=== PATIENT | male | born 2000 | race Caucasian/White ===

== ENCOUNTER 2018-02-03 12:13 | Emergency (ER) | payer OTHER ==
[2018-02-03 12:21] VITALS: BP 133/77
--- NOTE | 2018-02-03 12:35 | ED Physician Documentation ---
PD HPI LOWER EXT INJURY - Stated complaint Stated Complaint: L HIP PX - Chief complaint Chief Complaint: Ext Problem - History obtained from History obtained from: Patient PD PAST MEDICAL HISTORY - Past Medical History Past Medical History: Yes - Past Surgical History Past Surgical History: No - Present Medications Home Medications: Ambulatory Orders Medication Instructions Recorded Confirmed No Known Home Medications [No 02/03/18 02/03/18 Known Home Medications] - Allergies Allergies/Adverse Reactions: Allergies Allergy/AdvReac Type Severity Reaction Status Date / Time No Known Drug Allergies Allergy Verified 02/03/18 12:21 - Social History Does the pt smoke?: No Smoking Status: Never smoker Does the pt drink ETOH?: No Does the pt have substance abuse?: No - Immunizations Immunizations are current?: Yes Results - Vitals Vitals: Vital Signs - 24 hr 02/03/18 12:16 Temperature 36.5 C Heart Rate 69 Respiratory 16 Rate Blood Pressure 133/77 H O2 Saturation 100 Oxygen O2 Source Room air
[2018-02-03] MEDS ORDERED: KETOROLAC 60 MG/2 ML VIAL IVP STA (12:52)
[2018-02-03] MEDS ORDERED: ONDANSETRON 4 MG/2 ML VIAL IVP STA (12:52)
--- NOTE | 2018-02-03 12:54 | ED Physician Documentation ---
PD HPI ABD PAIN - Stated complaint Stated Complaint: L HIP PX - Chief complaint Chief Complaint: Ext Problem - History obtained from History obtained from: Patient - History of Present Illness Timing - onset: Today Timing - details: Abrupt onset (onset this morning when awakening), Still present Quality: Aching, Stabbing, Pain Location: LLQ (he initially was thinking hip pain but he points to lower abd/ side.) Radiation: Left flank Improved by: No: Laying still, Position Worsened by: Position (seems worse if he is on his side). No: Breathing, Palpation Associated symptoms: Nausea (at onset of the pain). No: Vomiting, Diarrhea Similar symptoms before: Has not had sx before Recently seen: Not recently seen Review of Systems Constitutional: denies: Fever, Chills Nose: denies: Rhinorrhea / runny nose, Congestion Throat: denies: Sore throat Respiratory: denies: Cough GI: reports: Abdominal Pain, Nausea, Vomiting. denies: Constipation, Diarrhea : denies: Dysuria, Frequency, Hematuria, Discharge Skin: denies: Rash, Lesions Neurologic: denies: Near syncope, Altered mental status PD PAST MEDICAL HISTORY - Past Medical History Past Medical History: Yes - Past Surgical History Past Surgical History: No - Present Medications Home Medications: Ambulatory Orders Medication Instructions Recorded Confirmed Dexamethasone [Decadron] 4 mg PO DAILY #5 tablet 02/03/18 HYDROcod/ACETAM 5/325 [[place] 5/325] 1 tab PO Q6H PRN #15 tablet 02/03/18 Naproxen [Naprosyn] 500 mg PO BID #20 tablet 02/03/18 Ondansetron Odt [Zofran] 4 mg TL Q6H PRN #15 tablet 02/03/18 - Allergies Allergies/Adverse Reactions: Allergies Allergy/AdvReac Type Severity Reaction Status Date / Time No Known Drug Allergies Allergy Verified 02/03/18 12:21 - Social History Does the pt smoke?: No Smoking Status: Never smoker Does the pt drink ETOH?: No Does the pt have substance abuse?: No - Immunizations Immunizations are current?: Yes PD ED PE NORMAL - Vitals Vital signs reviewed: Yes - General General: Alert and oriented X 3, Well developed/nourished, Other (appears in pain) - HEENT HEENT: Pharynx benign - Neck Neck: Supple, no meningeal sign, No adenopathy - Cardiac Cardiac: RRR, No murmur - Respiratory Respiratory: Clear bilaterally - Abdomen Abdomen: Normal bowel sounds, Soft, Non distended, No organomegaly, Other ( tender left lower abd without guarding and some tender left CVA area. No rash nor sores. ) - Male Male : Other (no inguinal hernias nor nodes. ) - Rectal Rectal: Deferred - Derm Derm: Normal color, Warm and dry - Extremities Extremities: Other (the lateral hip itself is not tender and no pain with ROM of the hip. ) - Neuro Neuro: Alert and oriented X 3, No motor deficit, Normal speech Results - Vitals Vitals: Vital Signs - 24 hr 02/03/18 12:16 Temperature 36.5 C Heart Rate 69 Respiratory 16 Rate Blood Pressure 133/77 H O2 Saturation 100 Oxygen O2 Source Room air - Labs Labs: Laboratory Tests 02/03/18 02/03/18 13:15 14:25 WBC 16.3 H RBC 5.89 Hgb 16.8 Hct 49.5 MCV 84.1 MCH 28.5 MCHC 33.8 RDW 13.5 Plt Count 212 MPV 9.2 Neut # 14.6 H Lymph # 1.1 L [place] # 0.5 Eos # 0.0 Baso # 0.1 Absolute Nucleated RBC 0.00 Nucleated RBC % 0.0 Urine Color YELLOW Urine Clarity CLEAR Urine pH 7.5 Ur Specific [place] 1.020 Urine Protein NEGATIVE Urine Glucose (UA) NEGATIVE Urine Ketones NEGATIVE Urine Occult Blood LARGE H Urine Nitrite NEGATIVE Urine Bilirubin NEGATIVE Urine Urobilinogen 1 (NORMAL) Ur Leukocyte Esterase NEGATIVE Urine RBC TNTC H Urine WBC 0-3 Ur Squamous Epith Cells RARE Squamous Amorphous Sediment Marked Urine Bacteria Rare Urine Mucus Marked Strands Ur Microscopic Review INDICATED Urine Culture Comments NOT INDICATED - Rads (name of study) KUB CT Radiology: Prelim report reviewed, EMP read contemporaneously (3 mm stone left renal pelvis, jsut at upper ureter. no significant obstruction. ) PD MEDICAL DECISION MAKING - ED course Complexity details: reviewed results (kidney stone just at upper ureter/renal pelvis. Not obstructing but it looks in a position to me to be giving some pain. No other apparent cause. ), considered differential, d/w patient Departure - Departure Disposition: 01 Home, Self Care Clinical Impression: Left lateral abdominal pain, Ureterolithiasis Condition: Stable Record reviewed to determine appropriate education?: Yes Instructions: ED Stone Renal W Colic Follow-Up: [facility] [Provider Group] Prescriptions: Dexamethasone [Decadron] 4 mg PO DAILY #5 tablet HYDROcod/ACETAM 5/325 [[place] 5/325] 1 tab PO Q6H PRN #15 tablet PRN Reason: Pain Naproxen [Naprosyn] 500 mg PO BID #20 tablet Ondansetron Odt [Zofran] 4 mg TL Q6H PRN #15 tablet PRN Reason: Nausea / Vomiting Comments: Your pain seems to be coming from a kidney stone that is just at the upper part of the ureter. It is small stone at 3 mm and should be able to pass over the next few days. Use some anti-inflammatories with naproxen twice daily and Decadron daily for the next several days. Add Tylenol or hydrocodone if needed for worse pain. Ondansetron if needed for nausea. Recheck with your primary care clinic in 2-3 days, call for an appointment. Return sooner if worse pain again or other problems. Your urine appears normal without any infection. No other obvious cause of the pain is seen on the CT scan. Discharge Date/Time: 02/03/18 15:38
[2018-02-03 13:22] LABS: BASOPHILS # (AUTO) 0.1 10^3/uL (0.0-0.1); BASOPHILS % (AUTO) 0.5 %; EOSINOPHILS % (AUTO) 0.1 %; HGB - HEMOGLOBIN 16.8 g/dL (14.0-18.0); LYMPHOCYTES # (AUTO) 1.1 10^3/uL (1.5-3.5); LYMPHOCYTES % (AUTO) 6.9 %; MEAN CORPUSCULAR HEMOGLOBIN 28.5 pg (27.0-31.0); MEAN CORPUSCULAR HGB CONC 33.8 g/dL (32.0-36.0); MEAN CORPUSCULAR VOLUME 84.1 fL (80.0-94.0); MEAN PLATELET VOLUME 9.2 fL (7.4-11.4); MONOCYTES # (AUTO) 0.5 10^3/uL (0.0-1.0); MONOCYTES % (AUTO) 2.9 %; NEUTROPHILS # (AUTO) 14.6 10^3/uL (1.5-6.6); NEUTROPHILS % (AUTO) 89.6 %; PLT - PLATELET COUNT 212 10^3/uL (130-450); RED BLOOD COUNT 5.89 10^6/uL (4.70-6.10); RED CELL DISTRIBUTION WIDTH 13.5 % (12.0-15.0); WHITE BLOOD COUNT 16.3 x10^3/uL (4.8-10.8)
--- NOTE | 2018-02-03 14:01 | CT Report ---
EXAM: CT ABDOMEN AND PELVIS EXAM DATE: 02/03/2018 01:25 PM. CLINICAL HISTORY: Abdominal pain COMPARISONS: None. TECHNIQUE: Routine axial helical CT imaging was performed through the abdomen and pelvis without IV c ontrast. Reconstructions: Coronal and sagittal. In accordance with CT protocol optimization, one or more of the following dose reduction techniques w ere utilized for this exam: automated exposure control, adjustment of mA and/or KV based on patient s ize, or use of iterative reconstructive technique. FINDINGS: Lung Bases: Unremarkable. Abdominal Organs: There is a 0.3 cm stone within the left renal pelvis. There is no evidence of signi ficant left hydronephrosis or perinephric stranding. No distal obstructing stone is seen. Right kidne y demonstrates a significant abnormalities. The liver, spleen, pancreas, and adrenal glands demonstra te no acute noncontrast findings. Gallbladder/bile ducts: No significant abnormalities. Peritoneal Cavity: No free fluid, free air or laci adenopathy. Bowel is grossly unremarkable. Pelvic Organs: No dilated or thick-walled bowel is seen. There is a small amount of free fluid within the pelvis. No intraperitoneal free air. No enlarged mesenteric or retroperitoneal lymph nodes. Vasculature: Unremarkable. Other: None. IMPRESSION: 1. There is left nephrolithiasis. There is a 0.3 cm stone within the left renal pelvis. There is no e vidence of significant hydronephrosis or perinephric stranding. No distal obstructing stone. 2. No dilated or thick-walled bowel is seen. No evidence of bowel obstruction or appendicitis. 4. There is a small amount of free fluid within the pelvis. This is nonspecific but could be secondar y to inflammation. Referring Provider Line: [phone] SITE ID: [id number]
[2018-02-03 14:28] LABS: BILIRUBIN,URINE NEGATIVE (NEGATIVE); GLUCOSE, URINE (UA) NEGATIVE (NEGATIVE); KETONES,URINE (UA) NEGATIVE (NEGATIVE); LEUKOCYTE ESTERASE, URINE NEGATIVE (NEGATIVE); NITRITE,URINE NEGATIVE (NEGATIVE); OCCULT BLOOD,URINE LARGE (NEGATIVE); PH,URINE 7.5 PH (5.0-7.5); PROTEIN,URINE NEGATIVE (NEGATIVE); UROBILINOGEN,URINE 1 (NORMAL) E.U./dL (NORMAL)
[2018-02-03 14:29] LABS: CLARITY,URINE CLEAR (CLEAR)
[2018-02-03 14:38] LABS: AMORPHOUS SEDIMENT,UR Marked /LPF; BACTERIA,URINE Rare /HPF (None Seen); MUCUS,URINE Marked Strands; RBC,URINE TNTC /HPF (0-5); SQUAMOUS EPITHELIAL CELL,UR RARE Squamous (<= Few)
[2018-02-03] MEDS ORDERED: ACETAMINOPHEN 325 MG TABLET PO STA (14:53)
[2018-02-03] MEDS ORDERED: DEXAMETHASONE 10 MG/ML VIAL IVP STA (14:53)
== END 2018-02-03 15:38 | disposition home or self-care (01) ==
LOC: ED 12:13
DX: N20.1 Calculus of ureter (principal); R10.32 Left lower quadrant pain
CPT/HCPCS: 36415; 74176; 81001; 81003; 85025; 87086; 96374; 96375; 99283

== ENCOUNTER 2018-03-18 11:44 | Emergency (ER) | payer OTHER ==
[2018-03-18] MEDS ORDERED: KETOROLAC 60 MG/2 ML VIAL IVP STA (12:30)
[2018-03-18 12:52] LABS: BASOPHILS % (AUTO) 0.3 %; EOSINOPHILS % (AUTO) 0.2 %; HGB - HEMOGLOBIN 14.8 g/dL (14.0-18.0); LYMPHOCYTES # (AUTO) 1.3 10^3/uL (1.5-3.5); LYMPHOCYTES % (AUTO) 8.6 %; MEAN CORPUSCULAR HEMOGLOBIN 29.4 pg (27.0-31.0); MEAN CORPUSCULAR HGB CONC 33.8 g/dL (32.0-36.0); MEAN CORPUSCULAR VOLUME 86.8 fL (80.0-94.0); MEAN PLATELET VOLUME 8.5 fL (7.4-11.4); MONOCYTES # (AUTO) 0.5 10^3/uL (0.0-1.0); MONOCYTES % (AUTO) 3.1 %; NEUTROPHILS # (AUTO) 12.9 10^3/uL (1.5-6.6); NEUTROPHILS % (AUTO) 87.8 %; PLT - PLATELET COUNT 231 10^3/uL (130-450); RED BLOOD COUNT 5.05 10^6/uL (4.70-6.10); RED CELL DISTRIBUTION WIDTH 13.2 % (12.0-15.0); WHITE BLOOD COUNT 14.7 x10^3/uL (4.8-10.8)
[2018-03-18 13:01] LABS: ALBUMIN 4.4 g/dL (3.2-5.5); ALBUMIN/GLOBULIN RATIO 1.6 (1.0-2.2); BILIRUBIN,TOTAL 0.8 mg/dL (0.2-1.0); CALCIUM 9.5 mg/dL (8.5-10.3); CREATININE 1.3 mg/dL (0.6-1.2); TOTAL PROTEIN 7.2 g/dL (6.7-8.2)
[2018-03-18] MEDS ORDERED: SODIUM CHLORIDE 0.9% 1,000 ML IV ONE (13:05)
--- NOTE | 2018-03-18 14:22 | ED Physician Documentation ---
PD HPI ABD PAIN - Stated complaint Stated Complaint: ABD PX/LT SIDE - Chief complaint Chief Complaint: Abd Pain - History obtained from History obtained from: Patient, Friend - History of Present Illness Timing - onset: Enter time (929), Today Timing - duration: Hours Timing - details: Abrupt onset, Still present Quality: Sharp, Pain Location: LUQ Radiation: Left flank Improved by: Other (nothing) Worsened by: Other (nothing) Associated symptoms: Nausea Similar symptoms before: Diagnosis (kidney stone) Recently seen: Emergency Dept - Additional information Additional information: 17-year-old male has complained of some left flank pain and this has been present since this morning at about 930. The pain is severe and there are no modifying factors. He has a history of kidney stone on the left side. He was seen in the emergency department last month with CT scan done showing a 3 mm stone in the proximal left ureter. At that point he did not have hydronephrosis. He had resolution of his symptoms until this morning. Review of Systems Constitutional: denies: Fever Eyes: denies: Decreased vision Ears: denies: Ear pain Nose: denies: Congestion Throat: denies: Sore throat Cardiac: denies: Chest pain / pressure Respiratory: denies: Dyspnea, Cough GI: reports: Abdominal Pain, Nausea, Vomiting : denies: Dysuria, Frequency Skin: denies: Rash Musculoskeletal: reports: Back pain. denies: Neck pain, Extremity pain Neurologic: denies: Generalized weakness, Focal weakness, Numbness PD PAST MEDICAL HISTORY - Past Medical History Past Medical History: No - Past Surgical History Past Surgical History: No - Present Medications Home Medications: Ambulatory Orders Medication Instructions Recorded Confirmed Ciprofloxacin HCl [Cipro] 500 mg PO BID #14 tablet 03/18/18 HYDROcod/ACETAM 5/325 [[place] 5/325] 1 - 2 ea PO Q6H PRN #15 tablet 03/18/18 - Allergies Allergies/Adverse Reactions: Allergies Allergy/AdvReac Type Severity Reaction Status Date / Time No Known Drug Allergies Allergy Verified 02/03/18 12:21 - Social History Does the pt smoke?: No Smoking Status: Never smoker Does the pt drink ETOH?: No Does the pt have substance abuse?: No - Immunizations Immunizations are current?: Yes - POLST Patient has POLST: No PD ED PE NORMAL - Vitals Vital signs reviewed: Yes (hypertensive mild ) - General General: Alert and oriented X 3, Well developed/nourished, Other (17 y/o male writhing in pain on the bed begging for relief. ) - HEENT HEENT: Atraumatic, PERRL, EOMI - Neck Neck: Supple, no meningeal sign - Cardiac Cardiac: RRR, No murmur - Respiratory Respiratory: No respiratory distress, Clear bilaterally - Abdomen Abdomen: Soft, Non tender - Back Back: No CVA TTP, No spinal TTP - Derm Derm: Normal color, Warm and dry, No rash - Extremities Extremities: No deformity, No edema - Neuro Neuro: Alert and oriented X 3, No motor deficit, No sensory deficit, Normal speech Eye Opening: Spontaneous Motor: Obeys Commands Verbal: Oriented GCS Score: 15 - Psych Psych: Normal mood, Normal affect Results - Vitals Vitals: Vital Signs - 24 hr 03/18/18 03/18/18 11:52 14:29 Temperature 36.3 C L 36.6 C Heart Rate 61 74 Respiratory 16 16 Rate Blood Pressure 134/73 H 130/70 O2 Saturation 98 100 Oxygen O2 Source Room air - Labs Labs: Laboratory Tests 03/18/18 03/18/18 03/18/18 12:13 12:13 14:38 WBC 14.7 H RBC 5.05 Hgb 14.8 Hct 43.8 MCV 86.8 MCH 29.4 MCHC 33.8 RDW 13.2 Plt Count 231 MPV 8.5 Neut # (Auto) 12.9 H Lymph # (Auto) 1.3 L [place] # (Auto) 0.5 Eos # (Auto) 0.0 Baso # (Auto) 0.0 Absolute Nucleated RBC 0.00 Nucleated RBC % 0.0 Sodium 138 Potassium 3.7 Chloride 105 Carbon Dioxide 27 Anion Gap 6.0 BUN 12 Creatinine 1.3 H Estimated GFR (MDRD) 71 L Glucose 120 H Calcium 9.5 Total Bilirubin 0.8 AST 18 ALT 13 Alkaline Phosphatase 53 Total Protein 7.2 Albumin 4.4 Globulin 2.8 Albumin/Globulin Ratio 1.6 Lipase 25 Urine Color YELLOW Urine Clarity CLOUDY Urine pH 8.5 H Ur Specific [place] 1.020 Urine Protein TRACE Urine Glucose (UA) NEGATIVE Urine Ketones NEGATIVE Urine Occult Blood MODERATE H Urine Nitrite NEGATIVE Urine Bilirubin NEGATIVE Urine Urobilinogen 0.2 (NORMAL) Ur Leukocyte Esterase NEGATIVE Urine RBC TNTC H Urine WBC 11-25 H Ur Squamous Epith Cells RARE Squamous Amorphous Sediment Marked Urine Bacteria Rare Ur Microscopic Review INDICATED Urine Culture Comments INDICATED - Rads (name of study) CT ab/pel without Radiology: Prelim report reviewed (Impression: 1. 4 mm distal left ureter stone with mild to moderate left hydronephrosis.), EMP read indepedently, See rad report Procedures - Bedside sono Bedside sono by EMP: With use of bedside ultrasound the left kidney is imaged there is evidence of hydronephrosis and the kidney is sonographically nontender. PD MEDICAL DECISION MAKING - ED course Complexity details: reviewed results, re-evaluated patient, considered differential, d/w patient, d/w family ED course: This 17-year-old male had a kidney stone on the left side that had only begun to descend and was not in the ureter on his most recent CT scan. He did not have hydronephrosis on that exam. Today he is presenting again with symptoms and he has hydronephrosis on bedside exam with the ultrasound. I have discussed with the patient the treatment of the kidney stone and expectant management. He is administered a liter of saline intravenously and 30 mg of Toradol with marked improvement in his pain. I discussed pain control and reasons to return to the emergency department. I suspect his 3 mm stone has moved. He does have on his prior scan smaller stones in both left and right kidney as well. The patient does develop some spontaneous vomiting and he also has evidence of infection in his urine. For this reason a repeat CT examination of the abdomen and pelvis is obtained showing a distal 4 mm stone. The stone has apparently moved from the renal pole to the ureterovesicular junction. The patient's infection is asymptomatic to the patient. He is not having fever, he does have a mildly elevated white blood cell count. He is administered Rocephin [address] Jose Gabriel urology at [facility] is consulted in the case and he recommends administration of Cipro, antiemetic, pain medication and follow-up as needed. - Sepsis Event Vital Signs: Vital Signs - 24 hr 03/18/18 03/18/18 11:52 14:29 Temperature 36.3 C L 36.6 C Heart Rate 61 74 Respiratory 16 16 Rate Blood Pressure 134/73 H 130/70 O2 Saturation 98 100 Oxygen O2 Source Room air Departure - Departure Disposition: 01 Home, Self Care Clinical Impression: Ureterolithiasis Urinary tract infection Qualifiers: Urinary tract infection type: site unspecified Hematuria presence: with hematuria Qualified Code(s): N39.0 - Urinary tract infection, site not specified Condition: Stable Instructions: ED UTI Cystitis Male, ED Stone Renal W Colic Follow-Up: [facility] [Provider Group] Prescriptions: Ciprofloxacin HCl [Cipro] 500 mg PO BID #14 tablet HYDROcod/ACETAM 5/325 [[place] 5/325] 1 - 2 ea PO Q6H PRN #15 tablet PRN Reason: Pain
[2018-03-18 14:51] LABS: BILIRUBIN,URINE NEGATIVE (NEGATIVE); GLUCOSE, URINE (UA) NEGATIVE (NEGATIVE); KETONES,URINE (UA) NEGATIVE (NEGATIVE); LEUKOCYTE ESTERASE, URINE NEGATIVE (NEGATIVE); NITRITE,URINE NEGATIVE (NEGATIVE); OCCULT BLOOD,URINE MODERATE (NEGATIVE); PH,URINE 8.5 PH (5.0-7.5); PROTEIN,URINE TRACE mg/dL (NEGATIVE); UROBILINOGEN,URINE 0.2 (NORMAL) E.U./dL (NORMAL)
[2018-03-18 14:53] LABS: CLARITY,URINE CLOUDY (CLEAR)
[2018-03-18] MEDS ORDERED: ONDANSETRON ODT 4 MG TABLET TL STA (14:54)
[2018-03-18 14:57] LABS: RBC,URINE TNTC /HPF (0-5); SQUAMOUS EPITHELIAL CELL,UR RARE Squamous (<= Few)
[2018-03-18 14:58] LABS: AMORPHOUS SEDIMENT,UR Marked /LPF; BACTERIA,URINE Rare /HPF (None Seen)
[2018-03-18] MEDS ORDERED: cefTRIAXone 1 GM in SODIUM CHLORIDE 0.9% MINIBAG 100 ML IV STA (15:05)
--- NOTE | 2018-03-18 16:39 | CT Report ---
Procedure Date: 03/18/2018 Accession Number: [id number] / [id number] Procedure: CT - Abdomen/Pelvis W/O CPT Code: FULL RESULT: EXAM: CT ABDOMEN AND PELVIS EXAM DATE: 03/18/2018 04:15 PM. CLINICAL HISTORY: Stone symptoms with infection and hydro on bedside. COMPARISONS: 02/03/2018. TECHNIQUE: Routine helical CT imaging was performed through the abdomen and pelvis. IV contrast: No. Enteric contrast: No. Reconstructions: Coronal and sagittal. In accordance with CT protocol optimization, one or more of the following dose reduction techniques were utilized for this exam: automated exposure control, adjustment of mA and/or KV based on patient size, or use of iterative reconstructive technique. FINDINGS: Lung Bases: Unremarkable. Liver: The liver is normal in size and contour. Gallbladder/Bile Ducts: Unremarkable. Spleen: Normal in size and contour. Pancreas: Normal. Adrenal Glands: Normal. Kidneys: There is [id number] hydronephrosis of the left kidney. There is a distal left ureter stone measuring 4 mm in diameter. There is a 1 mm left mid pole kidney stone. Peritoneal Cavity/Bowel: Normal. No free fluid, free air or adenopathy. No masses or acute inflammatory process. The appendix is well visualized and normal. Pelvic Organs: Normal. The bladder and visualized pelvic organs are within normal limits. Vasculature: No aneurysms or other significant abnormality. Bones: No significant abnormality. Other: None. IMPRESSION: 1. 4 mm distal left ureter stone with [id number] left hydronephrosis. [facility]
[2018-03-18 17:27] VITALS: BP 132/68
== END 2018-03-18 17:40 | disposition home or self-care (01) ==
LOC: ED 11:44
DX: N13.2 Hydronephrosis with renal and ureteral calculous obstruction (principal); N39.0 Urinary tract infection, site not specified
CPT/HCPCS: 36415; 74176; 80053; 81001; 83690; 85025; 87086; 96361; 96365; 96375; 99283; 99284; Q0162; 81003